=== PATIENT | female | born 1960 | race Caucasian/White ===

== ENCOUNTER 2024-02-19 12:38 | Emergency (ER) | payer OTHER, SELFPAY ==
[2024-02-19 12:40] VITALS: BP 194/93; PULSE 100; RESP 18; TEMP 36.1; O2SAT 100
--- NOTE | 2024-02-19 12:47 | PC.NURSE ---
Patient reports she has white coat syndrome. ERP made aware of elevated blood pressure
[2024-02-19 13:00] VITALS: BP 187/89; PULSE 77; RESP 17; O2SAT 95
[2024-02-19 13:30] VITALS: BP 153/83; PULSE 63; RESP 17; O2SAT 98
[2024-02-19 13:47] LABS: Basophils Absolute Auto 0.03 K/mm3 (0.00-0.10); Basophils Percent Auto 0.4 % (0.0-1.0); Eosinophils Absolute Auto 0.09 K/mm3 (0.02-0.50); Eosinophils Percent Auto 1.2 % (1.0-6.0); Hematocrit 39.4 % (35.0-49.0); Hemoglobin 12.6 g/dL (12.0-15.0); Immature Granulocyte Absolute 0.02 K/mm3 (0.00-0.00); Immature Granulocyte Percent A 0.3 % (0.0-0.0); Lymphocytes Absolute Auto 1.89 K/mm3 (1.10-4.50); Mean Corpuscular Hemoglobin 28.3 pg (27.0-31.0); Mean Corpuscular Volume 88.3 fL (78.0-102.0); Mean Platelet Volume 9.4 fl (9.2-11.8); Monocytes Percent Auto 6.9 % (2.0-11.0); Neutrophils Absolute Auto 4.74 K/mm3 (1.70-7.20); Neutrophils Percent Auto 65.2 % (50.0-70.0); Platelet Count Result 342 K/mm3 (150-420); Red Blood Count 4.46 M/mm3 (4.20-5.40); White Blood Count 7.3 K/mm3 (4.8-10.8)
[2024-02-19 13:57] LABS: Add Urine Microscopic? NO; Appearance Urine Clear (Clear); Bilirubin Urine Negative (Negative); Blood Urine Negative (Negative); Color Urine Light Yellow (Yellow); Glucose Urine UA Negative (Negative); Ketones Urine Negative (Negative); Leukocyte Esterase Ur Negative (Negative); Nitrate Urine Negative (Negative); Protein Urine Negative (Negative); Specific Grav Ur 1.015 (1.010-1.020); Urobilinogen Urine 0.2 mg/dL (0.2-1.0)
--- NOTE | 2024-02-19 14:00 | ED.GENADULT ---
HPI - General Adult General Chief complaint: Unspecified Stated complaint: pain on left side under arm Time Seen by Provider: 02/19/24 13:02 History of Present Illness HPI narrative: 63-year-old woman with history of breast cancer in the left breast in 2016 status post chemo and radiation who presents to the emergency department with intermittent left-sided rib and flank pain over the last 1 week. She describes a kind of shooting pain that comes from her back and radiates around the front. She has had several subsequent episodes of feeling anxious associated with some lightheadedness. She does not feel that the episodes of lightheadedness are necessarily associated with the pain she is having. she reports that she has been doing increased physical labor around the house as part of a [employer] project. She is noted to have an elevated blood pressure and she states that she has been told that her blood pressure fluctuates up and down in the past. Remainder of ROS was negative for fever, chills, nausea, vomiting, headache, vision changes, chest pain, sob, abdominal pain, or changes in diet, bladder, or bowel habits. Related Data Allergies Allergy/AdvReac Type Severity Reaction Status Date / Time acetaminophen [From [place]] Allergy Unknown Verified 02/19/24 12:41 hydrocodone [From [place]] Allergy Unknown Verified 02/19/24 12:41 Exam Narrative: GEN: Awake, alert, and appropriate to situation. Well appearing, well nourished, nontoxic, NAD. HEENT: No rhinorrhea noted, mucous membranes moist. No scleral icterus or conjunctival injection. CV: Normal rate, regular rhythm, S1S2 no M/G/R. 2+ distal pulses all extremities. No peripheral edema noted. PULM: Non-labored respiration. Clear to auscultation bilaterally. No wheezes, rales, rhonchi. GI: Abdomen soft, non -tender to palpation. No rigidity, distention or guarding.? NEURO: Normal speech. No lateralizing or focal deficits noted. reproducible tenderness in the intercostal space under the left breast. No skin changes noted specifically no vesicles or other findings consistent with shingles. Course Vital Signs Vital signs: Vital Signs Temperature 36.1 C L 02/19/24 12:40 Pulse Rate 100 02/19/24 12:40 Respiratory Rate 18 02/19/24 12:40 Blood Pressure 194/93 H 02/19/24 12:40 Pulse Oximetry 100 02/19/24 12:40 Oxygen Delivery Room Air 02/19/24 12:40 Temperature 36.1 C L 02/19/24 12:40 Pulse Rate 100 02/19/24 12:40 Respiratory Rate 18 02/19/24 12:40 Blood Pressure 194/93 H 02/19/24 12:40 Pulse Oximetry 100 02/19/24 12:40 Oxygen Delivery Room Air 02/19/24 12:40 Medical Decision Making MDM Narrative Medical decision making narrative: Patient was placed in Room #:?1 Independent Historian: External Source Review: medical records Differential diagnosis includes but not limited to:? Intercostal muscle strain, shingles, less likely intra-abdominal process Medications, treatment, ED course: basic labs obtained Social situation impacting patients care: stable home life Shared decision making:? discussed with patient that her labs look reassuring today and that she most likely has an acute intra-abdominal process. patient with known white coat syndrome impacting her blood pressure measurements in the emergency department today. DISCHARGE DIAGNOSIS: intercostal muscle spasm DISPOSITION: home CONDITION AT DISCHARGE:? stable Return to the emergency department or call 911 if? you develop high fever, shaking chills, or are unable to tolerate food or? fluids, have decreased urination, or are too sick to get out of bed. Return to the emergency department or call 911 if you develop worsening chest pain, shortness of breath, syncope or signs and symptoms of stroke. Vital Signs Vital Signs: Vital Signs Temperature 36.1 C L 02/19/24 12:40 Pulse Rate 100 02/19/24 12:40 Respiratory Rate 18 02/19/24 12:40 Blood Pressure
[2024-02-19 14:01] LABS: Alanine Aminotransferase 11 U/L (14-59); Albumin Level 3.9 g/dL (3.4-5.0); Alkaline Phosphatase 93 U/L (46-116); Anion Gap 7 mmol/L (4-12); Aspartate Amino Transferase 17 U/L (15-37); Bilirubin,Total 0.3 mg/dL (0.00-1.00); Blood Urea Nitrogen 9 mg/dL (7-18); Carbon Dioxide 32 mmol/L (21-32); Chloride 101 mmol/L (98-108); Estimated CRCL calculation 68 ml/min; Estimated Glomerular Filt Rate > 60; Glucose 115 mg/dL (70-99); Osmolality Calculated 289 mOsm/kg (285-295); Potassium 3.5 mmol/L (3.5-5.1); Sodium 140 mmol/L (136-145); Total Protein 8.4 g/dL (6.4-8.2)
[2024-02-19 14:07] VITALS: BP 166/70
[2024-02-19 14:32] VITALS: BP 160/80; PULSE 75; RESP 17; O2SAT 100
== END 2024-02-19 14:32 | disposition home or self-care (01) ==
PROVIDERS: Emergency Provider Family Medicine
DX: M79.18 Myalgia, other site (principal); H35.029 Exudative retinopathy, unspecified eye; R03.0 Elevated blood-pressure reading, without diagnosis of hypertension
CPT/HCPCS: 36415; 80053; 81003; 85025; 99283